=== PATIENT | female | born 1990 | race Caucasian/White ===

== ENCOUNTER → 2019-03-21 | Outpatient (CLI) | payer OTHER ==
[~2019-03-21] MED LIST: Macrobid 100 M100 MG PO; Pyridium100 MG PO
== END ==
LOC: LAB 16:18 → LAB SHORT 16:18
PROVIDERS: Advanced Practice Midwife
DX: Z01.419 Encounter for gynecological examination (general) (routine) without abnormal findings (principal)
CPT/HCPCS: G0123

== ENCOUNTER 2019-04-07 20:02 | Emergency (ER) | payer OTHER ==
[~2019-04-07] VITALS: Ht 162.6 cm; Wt 63.5 kg
[2019-04-07 20:50] LABS: Source, Urine Clean Catch
[2019-04-07 20:53] LABS: Appearance, Urine Hazy (Clear); Bilirubin, Urine Neg (Neg); Blood, Urine Neg (Neg); Color, Urine Yellow (P-Yellow); Glucose Qualitative, Urine Neg (Neg); Ketones, Urine 4+ (Neg); Leukocyte Esterase, Urine 2+ (Neg); Nitrite, Urine Neg (Neg); Protein, Urine 1+ (Neg); Specific Gravity, Urine 1.025 (1.003-1.022); Urobilinogen, Urine NORM (Normal)
[2019-04-07 21:03] LABS: White Blood Cells, Urine 25-50 /hpf (0-5)
[2019-04-07 21:04] LABS: Bacteria Many /hpf; Mucus Light (0-Heavy); Red Blood Cells, Urine 0-2 /hpf (0-2); Squamous Epithelial Cells Many /hpf (Few)
[2019-04-07] MEDS ORDERED: Pyridium100 MG PO (22:03)
[2019-04-07] MEDS ORDERED: Macrobid 100 M100 MG PO (22:03)
== END 2019-04-07 22:10 | disposition home or self-care (01) ==
LOC: ER 20:02
PROVIDERS: Emergency Medicine
DX: N39.0 Urinary tract infection, site not specified (principal)
CPT/HCPCS: 81001; 81025; 87077; 87086; 87186; 99283

== ENCOUNTER 2019-12-31 08:57 | Day surgery (SDC) | payer OTHER | END 2019-12-31 22:43 | disposition home or self-care (01) | LOC: RAD 08:57 | DX: N92.6 Irregular menstruation, unspecified (principal); Z90.79 Acquired absence of other genital organ(s) | CPT/HCPCS: 58340; 74740; Q9967 ==

== ENCOUNTER → 2023-05-10 | Outpatient (CLI) | payer OTHER ==
[2023-05-12 15:11] LABS: HPV 16 Negative (Negative); HPV 18 Negative (Negative); HPV OTHER HR TYPES Negative (Negative)
== END | disposition home or self-care (01) ==
LOC: LAB 14:57 → LAB SHORT 14:57
PROVIDERS: Family Medicine
DX: Z01.419 Encounter for gynecological examination (general) (routine) without abnormal findings (principal)
CPT/HCPCS: 87624; G0145